=== PATIENT | female | born 1960 | race Caucasian/White ===

== ENCOUNTER 2019-12-16 22:16 | Emergency (ER) | payer MEDICARE, MEDICAID ==
[2019-12-16] MEDS ORDERED: Albuterol/Ipratropium 3.0-0.5 MG/3 ML Neb Soln ONE (22:43)
[2019-12-16] MEDS ORDERED: Albuterol/Ipratropium 3.0-0.5 MG/3 ML Neb Soln NEB ONE ×2 (22:45→23:22)
[2019-12-16] MEDS ORDERED: predniSONE 20 MG Tab PO ONE (23:23)
--- NOTE | 2019-12-16 23:27 | EDM.PDOC ---
ED HPI GENERAL MEDICAL PROBLEM - General Chief Complaint: Respiratory Problem Stated Complaint: BREATHING PROBLEM Time Seen by Provider: 12/16/19 22:26 - History of Present Illness INITIAL COMMENTS - FREE TEXT/NARRATIVE: 59-year-old female presents with wheezing x3 days and significant coughing. Patient reports coughing for about 3 days much worse at night making it difficult for her to lie down where she gets paroxysmal coughing spells. She also thinks she may be doing a little bit of wheezing. She denies any known fevers. Denies any significant shortness of breath or chest pain. No confusion weakness or numbness. No change in bowel or bladder habits. No dysuria. She does endorse orange urine today and wonders if she is dehydrated. Patient denies any recent falls and has her typical chronic bilateral knee pain which is been going on for many years. No recent falls and no confusion. - Related Data Allergies Allergy/AdvReac Type Severity Reaction Status Date / Time hydrocodone Allergy Other Verified 12/16/19 22:37 Home Meds: Home Meds Albuterol Sulfate [Albuterol Sulfate Hfa] 1 inh INH ASDIRECTED PRN 12/16/19 [ History] Celecoxib 1 tab PO DAILY PRN 12/16/19 [History] Dextromethorphan Polistirex [12-Hour Cough Relief] 30 mg PO BID PRN 20 Days #30 theodore.er.12h 12/17/19 [Rx] predniSONE [Prednisone] 50 mg PO DAILY 4 Days tablet 12/17/19 [Rx] Past Medical History HEENT History: Reports: None Cardiovascular History: Reports: None Respiratory History: Reports: Asthma Gastrointestinal History: Reports: None, Hiatal Hernia Genitourinary History: Reports: None 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: Musculoskeletal History: Reports: Osteoarthritis Neurological History: Reports: None Psychiatric History: Reports: None Endocrine/Metabolic History: Reports: None Insulin Pump Model and Commercial Estimator: N/A Hematologic History: Reports: None Immunologic History: Reports: None Oncologic (Cancer) History: Reports: None Dermatologic History: Reports: None - Infectious Disease History Infectious Disease History: Reports: None - Past Surgical History Head Surgeries/Procedures: Reports: None GI Surgical History: Reports: Appendectomy, Cholecystectomy, Hernia, Abdominal Female Surgical History: Reports: Tubal Ligation Social & Family History - Family History Family Medical History: Noncontributory - Tobacco Use Smoking Status *Q: Never Smoker Second Hand Smoke Exposure: No - Caffeine Use Caffeine Use: Reports: Soda - Recreational Drug Use Recreational Drug Use: No Drug Use in Last 12 Months: No ED ROS GENERAL - Review of Systems Review Of Systems: Comprehensive ROS is negative, except as noted in HPI. ED EXAM, GENERAL - Physical Exam Exam: See Below Free Text/Narrative:: General: No acute distress. Comfortable. Heent: Examination revealed no pallor, no icterus, no lymphadenopathy. The patient has normal posterior pharynx, moist mucous membranes. Neck: Supple. No JVD. No rigidity. Heart: Normal rate. Reg rhythm. No murmurs appreciated. Lungs: Bilaterally clear to auscultation. No focal findings. Abdomen: Nontender, non-distended, soft, no CVA tenderness. Neuro: Pt is moving all four extremities. EOMI. PERRL. Normal speech. Skin: Exposed areas appeared normally perfused, warm, normal color with no meaningful rashes or lesions. Extremities: Peripheral examination revealed no pedal edema. Peripheral pulses were 2+. Course - Vital Signs Text/Narrative:: Well-appearing patient with reasonable saturations and no significant tachycardia. Her symptoms suggest bronchitis. Her lungs are clear but there is poor movement at the bases suggesting her long history of asthma. She was given a treatment here and feels much better. 3-day of prednisone. We discussed the risk of using prednisone with anti-inflammatories and she accepts the risk nothing this is certainly worthwhile given her significant coughing and breathing challenges. She will follow-up with her primary care provider return here with any worsening. Last Recorded V/S: Last Vital Signs Temp 35.9 C L 12/16/19 23:37 Pulse 93 12/16/19 23:37 Resp 20 12/16/19 23:37 BP 112/61 12/16/19 23:37 Pulse Ox 99 12/16/19 23:37 - Orders/Labs/Meds Orders: Active Orders 24 hr Category Date Time Status RT Aerosol Therapy [RC] ASDIRECTED Care 12/16/19 22:45 Active RT Aerosol Therapy [RC] ASDIRECTED Care 12/16/19 23:22 Active Labs: Laboratory Tests 12/17/19 Range/Units 23:50 Urine Color YELLOW Urine Appearance CLEAR Urine pH 6.0 (5.0-8.0) Ur Specific [place] 1.010 (1.001-1.035) Urine Protein NEGATIVE (NEGATIVE) mg/dL Urine Glucose (UA) NEGATIVE (NEGATIVE) mg/dL Urine Ketones NEGATIVE (NEGATIVE) mg/dL Urine Occult Blood MODERATE H (NEGATIVE) Urine Nitrite NEGATIVE (NEGATIVE) Urine Bilirubin NEGATIVE (NEGATIVE) Urine Urobilinogen 0.2 (<2.0) EU/dL Ur Leukocyte Esterase MODERATE H (NEGATIVE) Urine RBC 1-2 (0-2/HPF) Urine WBC 2-3 (0-5/HPF) Ur Epithelial Cells OCCASIONAL (NONE-FEW) Urine Bacteria RARE (NEGATIVE) Meds: Medications Discontinued Medications Generic Name Dose Route Start Last Admin Trade Name Joseq PRN Reason Stop Dose Admin Albuterol/Ipratropium 3 ml 12/16/19 22:45 12/16/19 22:46 Duoneb 3.0-0.5 Mg/3 Ml NEB 12/16/19 22:46 3 ml ONETIME ONE Administration Albuterol/Ipratropium Confirm 12/16/19 22:43 12/16/19 22:50 Duoneb 3.0-0.5 Mg/3 Ml Administered 12/16/19 22:44 Not Given Dose 3 ml .ROUTE .STK-MED ONE Albuterol/Ipratropium 3 ml 12/16/19 23:22 12/16/19 23:34 Duoneb 3.0-0.5 Mg/3 Ml NEB 12/16/19 23:23 3 ml ONETIME ONE Administration Prednisone 40 mg 12/16/19 23:23 12/16/19 23:34 Prednisone PO 12/16/19 23:24 40 mg ONETIME ONE Administration - Re-Assessments/Exams Free Text/Narrative Re-Assessment/Exam: 12/17/19 00:44 Patient feels better after treatment. She wants to be discharged home. We discussed the blood in her urine. She of course no longer menstruates. She will need follow-up for this. She has an appointment about 2 weeks from now with her primary care physician and she will ask about rechecking her urine. She understands the importance of follow-up of the symptom. Meanwhile we will send her home with several days of steroids only given her history of wheezing. Otherwise she will return to emergency with any worsening. Departure - Departure Time of Disposition: 00:45 Disposition: Home, Self-Care 01 Condition: Good Clinical Impression: Viral bronchitis - Discharge Information Prescriptions: Dextromethorphan Polistirex [12-Hour Cough Relief] 30 mg PO BID PRN 20 Days #30 theodore.er.12h PRN Reason: Cough predniSONE [Prednisone] 50 mg PO DAILY 4 Days tablet Referrals: Kaitlynn Puente DO [Primary Care Provider] - Forms: ED Department Discharge Additional Instructions: Drink plenty of water with your bronchitis. Take your cough medication as prescribed. You can also take honey mixed with tea are not any of a number of other beverages to help control your cough. Take your prednisone to help with your wheezing. Follow-up with your primary care provider. Discuss your urine test here which had some blood in it. This should be monitored by your primary care physician. Return to emergency with any worsening. The following information is given to patients seen in the emergency department who are being discharged to home. This information is to outline your options for follow-up care. We provide all patients seen in our emergency department with a follow-up referral. The need for follow-up, as well as the timing and circumstances, are variable depending upon the specifics of your emergency department visit. If you don't have a primary care physician on staff, we will provide you with a referral. We always advise you to contact your personal physician following an emergency department visit to inform them of the circumstance of the visit and for follow-up with them and/or the need for any referrals to a consulting specialist. The emergency department will also refer you to a specialist when appropriate. This referral assures that you have the opportunity for follow-up care with a specialist. All of these measure are taken in an effort to provide you with optimal care, which includes your follow-up. Under all circumstances we always encourage you to contact your private physician who remains a resource for coordinating your care. When calling for follow-up care, please make the office aware that this follow-up is from your recent emergency room visit. If for any reason you are refused follow-up, please contact the [facility] Emergency Department at and asked to speak to the emergency department charge nurse. Sepsis Event Note - Evaluation Sepsis Screening Result: No Definite Risk - Focused Exam Vital Signs: Vital Signs Temp Pulse Resp BP Pulse Ox 12/16/19 23:37 35.9 C L 93 20 112/61 99 12/16/19 22:35 36.1 C 90 20 135/62 92 L Date Exam was Performed: 12/17/19 Time Exam was Performed: 00:44 - My Orders Last 24 Hours: My Active Orders 12/16/19 22:45 RT Aerosol Therapy [RC] ASDIRECTED 12/16/19 23:22 RT Aerosol Therapy [RC] ASDIRECTED - Assessment/Plan Last 24 Hours: My Active Orders 12/16/19 22:45 RT Aerosol Therapy [RC] ASDIRECTED 12/16/19 23:22 RT Aerosol Therapy [RC] ASDIRECTED
== END 2019-12-17 01:20 | disposition home or self-care (01) ==
LOC: MW.ED 22:16
DX: J20.8 Acute bronchitis due to other specified organisms (principal); B97.89 Other viral agents as the cause of diseases classified elsewhere; J45.909 Unspecified asthma, uncomplicated; Z88.5 Allergy status to narcotic agent
CPT/HCPCS: 81001; 94640; 99285; A9270; 99283; J7620-GY

== ENCOUNTER 2020-07-23 16:08 | Emergency (ER) | payer MEDICARE, MEDICAID ==
--- NOTE | 2020-07-23 17:03 | EDM.PDOC ---
ED HPI GENERAL MEDICAL PROBLEM - General Chief Complaint: Genitourinary Problem Stated Complaint: POSSIBLE KIDNEY STONE Time Seen by Provider: 07/23/20 16:51 Source of Information: Reports: Patient History Limitations: Reports: No Limitations - History of Present Illness INITIAL COMMENTS - FREE TEXT/NARRATIVE: HISTORY AND PHYSICAL: History of present illness: Patient is a 60-year-old female who presents to the emergency room with complaints of low back pain. Initially she was seen at [facility] and had basic lab work along with a UA. The provider was concerned that she may have a kidney stone and recommended she come to the emergency room for a CT scan. Patient denies any fever, chills, headache, change in vision, syncope or near syncope. Denies any chest pain, shortness of breath or cough. Denies any nausea, vomiting, diarrhea, constipation or dysuria. Denies any vaginal bleeding/discharge/concerns of STDs or . Has not noted any blood in urine or stool. Patient has been eating and drinking appropriately. Review of systems: As per history of present illness and below otherwise all systems reviewed and negative. Past medical history: As per history of present illness and as reviewed below otherwise noncontributory. Surgical history: As per history of present illness and as reviewed below otherwise noncontributory. Social history: See social history for further information Family history: As per history of present illness and as reviewed below otherwise noncontributory. Physical exam: General: Well developed and well nourished. Alert and orientated x 3. Nontoxic in appearance and in no acute distress. Vital signs are stable and have been reviewed by me. Nursing notes were reviewed. HEENT: Atraumatic, normocephalic, pupils equal and reactive bilaterally, negative for conjunctival pallor or scleral icterus, mucous membranes moist, TMs normal bilaterally, throat clear, neck supple, nontender, trachea midline. No drooling or trismus noted. No meningeal signs. No hot potato voice noted. Lungs: Clear to auscultation, breath sounds equal bilaterally, chest nontender. Normal work of breathing, no accessory muscles used. Heart: S1S2, regular rate and rhythm without overt murmur Abdomen: Soft, nondistended, nontender. Negative for masses or hepatosplenomegaly. Negative for costovertebral tenderness. Pelvis: Stable nontender. Skin: Intact, warm, dry. No lesions or rashes noted. Hematologic: No petechiae or purpra. Mucosa appropriate color and normal nail bed color and refill. Extremities: Atraumatic, moves all extremities per self without difficulty or deficits, negative for cords or calf pain. Neurovascular unremarkable. Neuro: Awake, alert, oriented. Cranial nerves II through XII unremarkable. Cerebellum unremarkable. Motor and sensory unremarkable throughout. Exam nonfocal. Psychiatric: Mood and affect are appropriate. Normal thought process. Answering questions appropriately. Notes: Patient did have a CBC, BMP, UA done today, which was normal with the exception of moderate amount of blood noted in the urine. [place] provider encouraged her to come to the emergency room for a CT of her abdomen and pelvis I have spoken with the patient/caregiver and discussed today's findings, in addition to providing specific details for plan of care. Reassessment at the time of disposition demonstrates that the patient is in no acute distress. The patient has remained stable throughout the entire ED visit and is without objective evidence for acute process requiring urgent intervention or hospitalization. The patient is stable for discharge, counseling was provided and we discussed in great detail signs and symptoms that would prompt them to return to the Emergency Department. Medication, follow up and supportive care measures were reviewed and discussed. Voices understanding and is agreeable to plan of care. Denies any further questions or concerns at this time. Diagnostics: CBC, CMP, UA, HCGU, Abd/Pelvis Therapeutics: None Prescription: Macrobid Impression: UTI Plan: 1. Today your second urine shows the early signs of UTI. No kidney stones are identified.. 2. Take the medication as directed. Tylenol and/or ibuprofen as needed for pain management 3. We encourage you to follow up with your primary care provider and/or recommended specialist in the next few days for re-evaluation and further care/management. If your symptoms should worsen, new symptoms develop or any of the signs and symptoms we discussed should arise please return to the emergency room or call 911 (if needed). Definitive disposition and diagnosis as appropriate pending reevaluation and review of above. lower back Pain Score (Numeric/FACES): 7 - Related Data Allergies Allergy/AdvReac Type Severity Reaction Status Date / Time hydrocodone Allergy Other Verified 07/23/20 17:11 Home Meds: Home Meds Albuterol Sulfate [Albuterol Sulfate Hfa] 1 inh INH ASDIRECTED PRN 12/16/19 [History] Celecoxib 1 tab PO DAILY PRN 12/16/19 [History] Nitrofurantoin Monohyd/M-Cryst [Macrobid 100 mg Capsule] 100 mg PO BID 5 Days #10 capsule 07/23/20 [Rx] Past Medical History HEENT History: Reports: None Cardiovascular History: Reports: None Respiratory History: Reports: Asthma Gastrointestinal History: Reports: None, Hiatal Hernia Genitourinary History: Reports: None 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: Musculoskeletal History: Reports: Osteoarthritis Neurological History: Reports: None Psychiatric History: Reports: None Endocrine/Metabolic History: Reports: None Insulin Pump Model and Auto Wrecker: N/A Hematologic History: Reports: None Immunologic History: Reports: None Oncologic (Cancer) History: Reports: None Dermatologic History: Reports: None - Infectious Disease History Infectious Disease History: Reports: None - Past Surgical History Head Surgeries/Procedures: Reports: None GI Surgical History: Reports: Appendectomy, Cholecystectomy, Hernia, Abdominal Female Surgical History: Reports: Tubal Ligation Social & Family History - Family History Family Medical History: Noncontributory - Caffeine Use Caffeine Use: Reports: Soda ED ROS GENERAL - Review of Systems Review Of Systems: Comprehensive ROS is negative, except as noted in HPI. ED EXAM, RENAL/ - Physical Exam Exam: See Below (See dictation) Course - Vital Signs Last Recorded V/S: Last Vital Signs Temp 97.4 F 07/23/20 17:07 Pulse 63 07/23/20 17:07 Resp 16 07/23/20 17:07 BP 138/61 07/23/20 17:07 Pulse Ox 97 07/23/20 17:07 - Orders/Labs/Meds Orders: Active Orders 24 hr Category Date Time Status CULTURE URINE [RM] Stat Lab 07/23/20 17:42 Received Labs: Laboratory Tests 07/23/20 07/23/20 Range/Units 17:42 17:42 Urine Color YELLOW Urine Appearance CLEAR Urine pH 6.0 (5.0-8.0) Ur Specific [place] 1.015 (1.001-1.035) Urine Protein NEGATIVE (NEGATIVE) mg/dL Urine Glucose (UA) NEGATIVE (NEGATIVE) mg/dL Urine Ketones NEGATIVE (NEGATIVE) mg/dL Urine Occult Blood SMALL H (NEGATIVE) Urine Nitrite NEGATIVE (NEGATIVE) Urine Bilirubin NEGATIVE (NEGATIVE) Urine Urobilinogen 0.2 (<2.0) EU/dL Ur Leukocyte Esterase SMALL H (NEGATIVE) Urine RBC 0-2 (0-2/HPF) Urine WBC 1-3 (0-5/HPF) Ur Epithelial Cells FEW (NONE-FEW) Urine Bacteria 1+ H (NEGATIVE) Urine HCG, Qual NEGATIVE (NEGATIVE) Departure - Departure Time of Disposition: 19:29 Disposition: Home, Self-Care 01 Clinical Impression: UTI, Urinary tract infectious disease - Discharge Information Prescriptions: Nitrofurantoin Monohyd/M-Cryst [Macrobid 100 mg Capsule] 100 mg PO BID 5 Days #10 capsule Instructions: Urinary Tract Infection, Adult, [id number] Referrals: Kaitlynn Puente DO [Primary Care Provider] - Forms: ED Department Discharge Additional Instructions: The following information is given to patients seen in the emergency department who are being discharged to home. This information is to outline your options for follow-up care. We provide all patients seen in our emergency department with a follow-up referral. The need for follow-up, as well as the timing and circumstances, are variable depending upon the specifics of your emergency department visit. If you don't have a primary care physician on staff, we will provide you with a referral. We always advise you to contact your personal physician following an emergency department visit to inform them of the circumstance of the visit and for follow-up with them and/or the need for any referrals to a consulting specialist. The emergency department will also refer you to a specialist when appropriate. This referral assures that you have the opportunity for follow-up care with a specialist. All of these measure are taken in an effort to provide you with optimal care, which includes your follow-up. Under all circumstances we always encourage you to contact your private physic cici who remains a resource for coordinating your care. When calling for follow- up care, please make the office aware that this follow-up is from your recent emergency room visit. If for any reason you are refused follow-up, please contact the [facility] Emergency Department at and asked to speak to the emergency department charge nurse. [facility] Primary [facility] [address] [place] [id number] [facility] [address] [place] [address] Thank you for choosing the [facility] emergency department in [place] for your medical needs today. It was a pleasure caring for you. Today you were seen in the emergency department for low back pain. 1. Today your second urine shows the early signs of UTI. No kidney stones are identified. 2. Take the medication as directed. Tylenol and/or ibuprofen as needed for pain management 3. We encourage you to follow up with your primary care provider and/or recommended specialist in the next few days for re-evaluation and further care/management. If your symptoms should worsen, new symptoms develop or any of the signs and symptoms we discussed should arise please return to the emergency room or call 911 (if needed). Sepsis Event Note (ED) - Focused Exam Vital Signs: Vital Signs Temp Pulse Resp BP Pulse Ox 07/23/20 17:07 97.4 F 63 16 138/61 97 - My Orders Last 24 Hours: My Active Orders 07/23/20 17:42 CULTURE URINE [RM] Stat - Assessment/Plan Last 24 Hours: My Active Orders 07/23/20 17:42 CULTURE URINE [RM] Stat
--- NOTE | 2020-07-23 19:26 | CT ---
INDICATION: Flank pain, and hematuria. COMPARISON: CT of the abdomen and pelvis dated 11/25/2018 TECHNIQUE: Routine axial CT images of the abdomen and pelvis were obtained without the use of intravenous or oral contrast per routine renal stone protocol. FINDINGS: No hydronephrosis. Multiple pelvic phleboliths and phleboliths along the left gonadal veins. No ureterectasis. No stones within the urinary bladder which is decompressed. Uterine fibroids. No suspicious adnexal mass. The appendix is not confidently identified, however no suspicious inflammatory process in the right lower quadrant. Moderate colonic stool burden. Colonic diverticulosis. Cholecystectomy change. Large calcified granuloma in the left lung base, and other small noncalcified pulmonary nodules are stable. The spleen measures 12.9 cm. Mild hepatomegaly. No pancreatitis. Adrenal glands appear unremarkable. Atherosclerotic changes within the abdominal aorta without abdominal aortic aneurysm. Large amount of debris, presumably food debris within the stomach. Degenerative changes in the spine. Minimal anterolisthesis of L4 on L5, unchanged. IMPRESSION: No definite renal or ureteral calculi. No hydronephrosis. Please note that all CT scans at this facility use dose modulation, iterative reconstruction, and/or weight-based dosing when appropriate to reduce radiation dose to as low as reasonably achievable. Dictated by Caleb Gonsales MD @ Jul 23 2020 6:48PM (Electronically Signed)
[2020-07-23] MEDS ORDERED: Nitrofurantoin Monohydrate/Macrocrystalline 100 MG Cap PO ONE (19:45)
== END 2020-07-23 19:51 | disposition home or self-care (01) ==
LOC: MW.ED 16:08
DX: N39.0 Urinary tract infection, site not specified (principal); J45.909 Unspecified asthma, uncomplicated; Z88.5 Allergy status to narcotic agent; Z90.49 Acquired absence of other specified parts of digestive tract; Z98.51 Tubal ligation status
CPT/HCPCS: 74176; 81001; 81025; 87086; 99284; A9270; 99283

== ENCOUNTER 2022-01-30 10:13 | Emergency (ER) | payer MEDICARE, MEDICAID ==
[2022-01-30] MEDS ORDERED: methylPREDNISolone Sodium Succinate 125 MG/2 ML SDV IM ONE (10:35)
[2022-01-30] MEDS ORDERED: traMADol 50 MG Tab PO ONE (10:35)
== END 2022-01-30 13:09 | disposition home or self-care (01) ==
LOC: MW.ED 10:13
DX: S32.039A Unspecified fracture of third lumbar vertebra, initial encounter for closed fracture (principal); M17.12 Unilateral primary osteoarthritis, left knee; Z90.49 Acquired absence of other specified parts of digestive tract; Z79.899 Other long term (current) drug therapy; Z88.5 Allergy status to narcotic agent; X58.XXXA Exposure to other specified factors, initial encounter
CPT/HCPCS: 72131; 73560; 81001; 87086; 96372; 99284; A9270; J2930; 99283

== ENCOUNTER 2022-03-04 13:40 | Emergency (ER) | payer MEDICARE, MEDICAID ==
[2022-03-04] MEDS ORDERED: methylPREDNISolone Sodium Succinate 125 MG/2 ML SDV IM ONE (14:01)
[2022-03-04] MEDS ORDERED: HYDROmorphone 1 MG/ML Syringe IM ONE (14:01)
== END 2022-03-04 16:43 | disposition home or self-care (01) ==
LOC: MW.ED 13:40
DX: S32.020A Wedge compression fracture of second lumbar vertebra, initial encounter for closed fracture (principal); S32.030A Wedge compression fracture of third lumbar vertebra, initial encounter for closed fracture; I10 Essential (primary) hypertension; Z90.49 Acquired absence of other specified parts of digestive tract; Z79.899 Other long term (current) drug therapy; Z88.5 Allergy status to narcotic agent; X58.XXXA Exposure to other specified factors, initial encounter
CPT/HCPCS: 72131; 96372; 99283; J1170; J2930

== ENCOUNTER 2022-08-18 06:58 | Day surgery (SDC) | payer MEDICARE, MEDICAID ==
[~2022-08-18 06:58] MED LIST: Lactated Ringers 1,000 ML IV SCH
[2022-08-18] MEDS ORDERED: Lactated Ringers 1,000 ML IV SCH (09:45)
== END 2022-08-18 09:55 | disposition home or self-care (01) ==
LOC: MW.SDS 06:58
PROVIDERS: ATTEND Surgery
DX: K57.30 Diverticulosis of large intestine without perforation or abscess without bleeding (principal); M19.90 Unspecified osteoarthritis, unspecified site; Z86.010 Personal history of colon polyps; Z80.0 Family history of malignant neoplasm of digestive organs; Z79.82 Long term (current) use of aspirin; Z90.49 Acquired absence of other specified parts of digestive tract; Z98.890 Other specified postprocedural states; Z88.6 Allergy status to analgesic agent; Z79.899 Other long term (current) drug therapy
CPT/HCPCS: J7120

== ENCOUNTER 2022-12-17 07:07 | Emergency (ER) | payer MEDICARE, MEDICAID ==
[2022-12-17] MEDS ORDERED: Ketorolac 30 MG/ML SDV IM ONE (07:32)
[2022-12-17] MEDS ORDERED: Cyclobenzaprine 10 MG Tab PO ONE (07:32)
== END 2022-12-17 07:46 | disposition home or self-care (01) ==
LOC: MW.ED 07:07
DX: M54.50 Low back pain, unspecified (principal); J45.909 Unspecified asthma, uncomplicated; E66.9 Obesity, unspecified; Z88.5 Allergy status to narcotic agent; Z68.41 Body mass index [BMI] 40.0-44.9, adult
CPT/HCPCS: 96372; 99283; A9270; J1885

== ENCOUNTER 2023-02-24 19:35 | Inpatient (IN) | payer MEDICARE, MEDICAID ==
[2023-02-24] MEDS ORDERED: Ibuprofen 600 MG Tab PO ONE (19:59)
[2023-02-24] MEDS ORDERED: HYDROmorphone 1 MG/ML Syringe IM ONE (20:00)
[2023-02-24] MEDS ORDERED: HYDROmorphone 1 MG/ML Syringe IV ONE (20:08)
[2023-02-24] MEDS ORDERED: Morphine 15 MG Tab PO PRN (22:53)
[2023-02-25] MEDS ORDERED: Morphine 2 MG/ML SYRINGE IVPUSH PRN (01:06)
[2023-02-25] MEDS ORDERED: Ondansetron 4 MG/2 ML SDV IVPUSH PRN (01:07)
[2023-02-25] MEDS ORDERED: LORazepam 2 MG/ML SDV IVPUSH PRN (01:12)
[2023-02-25] MEDS: oxyCODONE 5 MG Tab PO PRN ×5 (02:47→20:38)
[2023-02-25] MEDS ORDERED: Albuterol 8 GM Inhaler INH PRN (10:19)
[2023-02-25 13:51] LABS: HEMATOCRIT 38.2 % (36.0-46.0); HEMOGLOBIN 12.5 g/dL (12.0-16.0); MEAN CORPUSCULAR HEMOGLOBIN 29.6 pg (27.0-32.0); MEAN CORPUSCULAR HGB CONC 32.7 g/dL (31.0-37.0); MEAN CORPUSCULAR VOLUME 90.3 fL (80.0-98.0); MEAN PLATELET VOLUME 9.3 fL (7.40-12.00); RED BLOOD CELL COUNT 4.23 M/uL (4.30-5.90); WHITE BLOOD CELL COUNT,WBC 8.83 K/uL (4.0-11.0)
[2023-02-25 14:21] LABS: A/G RATIO 1.2 (0.9-1.6); ALBUMIN 3.3 g/dL (3.4-5.0); BILIRUBIN TOTAL 0.7 mg/dL (0.2-1.0); CREATININE 0.9 mg/dL (0.6-1.0); EST CRCL DRUG DOSING (CG) 57.4 mL/min; MAGNESIUM 1.9 mg/dL (1.8-2.4); POTASSIUM,K 4.1 mmol/L (3.5-5.1); TSH ULTRASENSITIVE 2.11 uIU/mL (0.36-3.74)
[2023-02-25] MEDS: Meloxicam 7.5 MG Tab PO SCH (15:44)
[2023-02-25] MEDS: Enoxaparin 30 MG/0.3 ML Syringe SUBCUT SCH ×2 (15:44→20:38)
[2023-02-26] MEDS: oxyCODONE 5 MG Tab PO PRN ×4 (00:32→12:58)
[2023-02-26] MEDS: Acetaminophen 325 MG Tab PO PRN ×3 (04:33→12:58)
[2023-02-26 08:33] LABS: BASOPHILS PERCENT AUTO 0.6 % (0.0-1.5); EOSINOPHILS ABSOLUTE AUTO 0.3 K/uL (0.0-0.7); EOSINOPHILS PERCENT AUTO 3.9 % (0.0-7.0); HEMATOCRIT 35.9 % (36.0-46.0); HEMOGLOBIN 11.6 g/dL (12.0-16.0); LYMPHOCYTES ABSOLUTE AUTO 1.4 K/uL (0.6-2.4); MEAN CORPUSCULAR HEMOGLOBIN 29.4 pg (27.0-32.0); MEAN CORPUSCULAR HGB CONC 32.3 g/dL (31.0-37.0); MEAN CORPUSCULAR VOLUME 90.9 fL (80.0-98.0); MONOCYTES ABSOLUTE AUTO 0.6 K/uL (0.0-0.8); NEUTROPHILS ABSOLUTE AUTO 4.4 K/uL (1.4-5.7); NEUTROPHILS PERCENT AUTO 65.5 % (48.0-80.0); NRBC ABSOLUTE 0 K/uL; PLATELET COUNT,PLT 155 K/uL (150-400); RED BLOOD CELL COUNT 3.95 M/uL (4.30-5.90); WHITE BLOOD CELL COUNT,WBC 6.75 K/uL (4.0-11.0)
[2023-02-26 08:53] LABS: CALCIUM 8.7 mg/dL (8.5-10.1); CARBON DIOXIDE,CO2 29.2 mmol/L (21.0-32.0); CREATININE 0.9 mg/dL (0.6-1.0); EST CRCL DRUG DOSING (CG) 57.4 mL/min
[2023-02-26] MEDS: Meloxicam 7.5 MG Tab PO SCH (09:08)
[2023-02-26] MEDS: Enoxaparin 30 MG/0.3 ML Syringe SUBCUT SCH (09:13)
== END 2023-02-26 13:15 | disposition home or self-care (01) | DRG 563 ==
LOC: MW.ED 19:35 → MW.MS 02-25 00:37
PROVIDERS: ADMIT Internal Medicine; ATTEND Internal Medicine
DX: S82.431A Displaced oblique fracture of shaft of right fibula, initial encounter for closed fracture (principal); S82.61XA Displaced fracture of lateral malleolus of right fibula, initial encounter for closed fracture; F32.A Depression, unspecified; F10.129 Alcohol abuse with intoxication, unspecified; J45.909 Unspecified asthma, uncomplicated; G89.29 Other chronic pain; E66.9 Obesity, unspecified; M54.9 Dorsalgia, unspecified; M16.0 Bilateral primary osteoarthritis of hip; M17.10 Unilateral primary osteoarthritis, unspecified knee; M25.571 Pain in right ankle and joints of right foot; W18.30XA Fall on same level, unspecified, initial encounter; Z88.5 Allergy status to narcotic agent; Z79.51 Long term (current) use of inhaled steroids; Z98.890 Other specified postprocedural states; Z86.010 Personal history of colon polyps; Y92.89 Other specified places as the place of occurrence of the external cause; Z90.49 Acquired absence of other specified parts of digestive tract; W07.XXXA Fall from chair, initial encounter; Z98.51 Tubal ligation status
CPT/HCPCS: 72192; 73523; 73562; 73610; 96374; 99285; A9270 ×2; J1170; 36415; 80048; 80053; 83735; 84443; 85025; 85027; 97163-GP; J1650

== ENCOUNTER 2023-10-21 20:49 | Emergency (ER) | payer MEDICARE, MEDICAID ==
[2023-10-21 21:11] LABS: BASOPHILS ABSOLUTE AUTO 0.03 K/uL (0.00-0.20); BASOPHILS PERCENT AUTO 0.4 % (0.0-1.0); EOSINOPHILS ABSOLUTE AUTO 0.08 K/uL (0.00-0.45); EOSINOPHILS PERCENT AUTO 1.2 % (0.0-6.0); HEMATOCRIT 42.6 % (37.0-47.0); HEMOGLOBIN 13.9 g/dL (12.0-16.0); IMMATURE GRAN ABSOLUTE AUTO 0.04 K/uL (0.00-0.05); IMMATURE GRAN PERCENT AUTO 0.6 % (0.0-0.4); LYMPHOCYTES ABSOLUTE AUTO 2.22 K/uL (1.00-4.80); MEAN CORPUSCULAR HEMOGLOBIN 29.7 pg (28.0-32.0); MEAN CORPUSCULAR HGB CONC 32.6 g/dL (32.0-36.0); MEAN PLATELET VOLUME 9.4 fL (9.4-12.3); MONOCYTES ABSOLUTE AUTO 0.45 K/uL (0.00-0.80); MONOCYTES PERCENT AUTO 6.5 % (0.0-8.0); NEUTROPHILS ABSOLUTE AUTO 4.12 K/uL (1.80-7.70); NEUTROPHILS PERCENT AUTO 59.3 % (41.0-71.0); PLATELET COUNT,PLT 241 K/uL (150-400); RED BLOOD CELL COUNT 4.68 M/uL (4.10-5.30); WHITE BLOOD CELL COUNT,WBC 6.94 K/uL (3.9-11.3)
[2023-10-21] MEDS ORDERED: Iopamidol 755 MG/ML 500 ML Multipack Bottle IVPUSH ONE (21:24)
[2023-10-21 21:35] LABS: A/G RATIO 1.3 (0.9-1.6); ALBUMIN 3.8 g/dL (3.4-5.0); BILIRUBIN TOTAL 0.4 mg/dL (0.2-1.0); CALCIUM 9.3 mg/dL (8.5-10.1); CARBON DIOXIDE,CO2 29.9 mmol/L (21.0-32.0); CREATININE 0.8 mg/dL (0.6-1.0); EST CRCL DRUG DOSING (CG) 61.09 mL/min; PROTEIN TOTAL,TP 6.7 g/dL (6.4-8.2)
== END 2023-10-22 00:57 ==
LOC: MW.ED 20:49
DX: I63.9 Cerebral infarction, unspecified (principal); E66.9 Obesity, unspecified; Z88.5 Allergy status to narcotic agent
CPT/HCPCS: 36415; 70450; 70496; 70498; 80053; 82947; 84484; 85025; 93005; 99285; Q9967; 93010

== ENCOUNTER 2023-10-26 14:19 | Emergency (ER) | payer MEDICARE, MEDICAID ==
[2023-10-26 16:10] LABS: BASOPHILS ABSOLUTE AUTO 0.05 K/uL (0.00-0.20); BASOPHILS PERCENT AUTO 0.7 % (0.0-1.0); EOSINOPHILS ABSOLUTE AUTO 0.07 K/uL (0.00-0.45); HEMATOCRIT 38.8 % (37.0-47.0); HEMOGLOBIN 12.8 g/dL (12.0-16.0); IMMATURE GRAN ABSOLUTE AUTO 0.02 K/uL (0.00-0.05); IMMATURE GRAN PERCENT AUTO 0.3 % (0.0-0.4); LYMPHOCYTES ABSOLUTE AUTO 1.73 K/uL (1.00-4.80); LYMPHOCYTES PERCENT AUTO 23.7 % (24.0-44.0); MEAN CORPUSCULAR HEMOGLOBIN 30.3 pg (28.0-32.0); MEAN CORPUSCULAR VOLUME 91.9 fL (83.0-99.0); MEAN PLATELET VOLUME 9.6 fL (9.4-12.3); MONOCYTES ABSOLUTE AUTO 0.45 K/uL (0.00-0.80); MONOCYTES PERCENT AUTO 6.2 % (0.0-8.0); NEUTROPHILS ABSOLUTE AUTO 4.97 K/uL (1.80-7.70); NEUTROPHILS PERCENT AUTO 68.1 % (41.0-71.0); PLATELET COUNT,PLT 230 K/uL (150-400); RED BLOOD CELL COUNT 4.22 M/uL (4.10-5.30); WHITE BLOOD CELL COUNT,WBC 7.29 K/uL (3.9-11.3)
[2023-10-26 16:29] LABS: A/G RATIO 1.3 (0.9-1.6); ALBUMIN 3.4 g/dL (3.4-5.0); BILIRUBIN TOTAL 0.3 mg/dL (0.2-1.0); CALCIUM 8.9 mg/dL (8.5-10.1); CARBON DIOXIDE,CO2 30.8 mmol/L (21.0-32.0); EST CRCL DRUG DOSING (CG) 51.02 mL/min; POTASSIUM,K 4.1 mmol/L (3.5-5.1)
== END 2023-10-26 16:35 | disposition home or self-care (01) ==
LOC: MW.ED 14:19
DX: R20.2 Paresthesia of skin (principal); J45.909 Unspecified asthma, uncomplicated; M19.90 Unspecified osteoarthritis, unspecified site; E66.9 Obesity, unspecified; Z68.41 Body mass index [BMI] 40.0-44.9, adult; Z79.82 Long term (current) use of aspirin; Z79.01 Long term (current) use of anticoagulants; Z79.899 Other long term (current) drug therapy; Z88.5 Allergy status to narcotic agent
CPT/HCPCS: 36415; 80053; 85025; 99283; 99284

== ENCOUNTER 2024-01-25 04:25 | Emergency (ER) | payer MEDICARE, MEDICAID ==
[2024-01-25] MEDS: Lidocaine 1% PF 2 ML SDV ONE (04:42)
== END 2024-01-25 05:17 | disposition home or self-care (01) ==
LOC: MW.ED 04:25
DX: H69.91 Unspecified Eustachian tube disorder, right ear (principal); J00 Acute nasopharyngitis [common cold]; E66.9 Obesity, unspecified; Z79.82 Long term (current) use of aspirin; Z79.02 Long term (current) use of antithrombotics/antiplatelets; Z79.899 Other long term (current) drug therapy; Z88.5 Allergy status to narcotic agent; Z90.49 Acquired absence of other specified parts of digestive tract; Z68.41 Body mass index [BMI] 40.0-44.9, adult
CPT/HCPCS: 99283; U0002; J3490

== ENCOUNTER 2024-06-17 07:14 | Emergency (ER) | payer MEDICARE, MEDICAID ==
[2024-06-17] MEDS: Ibuprofen 600 MG Tab PO ONE (07:58)
== END 2024-06-17 08:13 ==
LOC: MW.ED 07:14
DX: M25.572 Pain in left ankle and joints of left foot (principal); M70.862 Other soft tissue disorders related to use, overuse and pressure, left lower leg; J45.909 Unspecified asthma, uncomplicated; E66.9 Obesity, unspecified; Z90.49 Acquired absence of other specified parts of digestive tract; Z79.82 Long term (current) use of aspirin; Z79.899 Other long term (current) drug therapy; Z88.5 Allergy status to narcotic agent; Z75.8 Other problems related to medical facilities and other health care
CPT/HCPCS: 73610; 99283; A9270

== ENCOUNTER 2024-07-05 08:29 | Emergency (ER) | payer MEDICARE, MEDICAID | END 2024-07-05 11:03 | disposition home or self-care (01) | LOC: MW.ED 08:29 | DX: S90.122A Contusion of left lesser toe(s) without damage to nail, initial encounter (principal); E66.9 Obesity, unspecified; Z68.41 Body mass index [BMI] 40.0-44.9, adult; Z90.49 Acquired absence of other specified parts of digestive tract; Z79.82 Long term (current) use of aspirin; Z79.899 Other long term (current) drug therapy; Z88.5 Allergy status to narcotic agent; X50.1XXA Overexertion from prolonged static or awkward postures, initial encounter | CPT/HCPCS: 73630-26-LT; 73630-LT; 99283 ==

== ENCOUNTER 2024-07-07 04:09 | Emergency (ER) | payer MEDICARE, MEDICAID ==
[2024-07-07] MEDS: Acetaminophen 500 MG Tab PO ONE (04:42)
[2024-07-07] MEDS: Lidocaine 4% 1 each Patch TOP SCH (04:42)
[2024-07-07] MEDS: Ibuprofen 600 MG Tab PO ONE (04:43)
[2024-07-07] MEDS: Lidocaine 4% 1 each Patch TOP ONE (04:47)
== END 2024-07-07 04:55 | disposition home or self-care (01) ==
LOC: MW.ED 04:09
DX: S39.012A Strain of muscle, fascia and tendon of lower back, initial encounter (principal); E66.9 Obesity, unspecified; Z88.8 Allergy status to other drugs, medicaments and biological substances; Z79.899 Other long term (current) drug therapy; Z68.36 Body mass index [BMI] 36.0-36.9, adult; X58.XXXA Exposure to other specified factors, initial encounter
CPT/HCPCS: 99283; A9270

== ENCOUNTER 2024-07-10 00:32 | Emergency (ER) | payer MEDICARE, MEDICAID ==
[2024-07-10 00:56] LABS: APPEARANCE,URINE CLEAR; BILIRUBIN,URINE NEGATIVE (NEGATIVE); COLOR,URINE YELLOW; GLUCOSE,URINE NEGATIVE (NEGATIVE); KETONES,URINE NEGATIVE (NEGATIVE); LEUKOCYTE ESTERASE,URINE TRACE (NEGATIVE); NITRITE,URINE NEGATIVE (NEGATIVE); OCCULT BLOOD,URINE TRACE-INTACT (NEGATIVE); PH,URINE 5.5 (5.0-8.0); PROTEIN,URINE NEGATIVE (NEGATIVE); UROBILINOGEN,URINE 0.2 EU/dL (<2.0)
[2024-07-10 01:03] LABS: BASOPHILS ABSOLUTE AUTO 0.07 K/uL (0.00-0.20); BASOPHILS PERCENT AUTO 0.8 % (0.0-1.0); EOSINOPHILS ABSOLUTE AUTO 0.19 K/uL (0.00-0.45); EOSINOPHILS PERCENT AUTO 2.3 % (0.0-6.0); HEMATOCRIT 39.6 % (37.0-47.0); HEMOGLOBIN 12.8 g/dL (12.0-16.0); IMMATURE GRAN ABSOLUTE AUTO 0.03 K/uL (0.00-0.05); IMMATURE GRAN PERCENT AUTO 0.4 % (0.0-0.4); LYMPHOCYTES PERCENT AUTO 20.5 % (24.0-44.0); MEAN CORPUSCULAR HEMOGLOBIN 27.4 pg (28.0-32.0); MEAN CORPUSCULAR HGB CONC 32.3 g/dL (32.0-36.0); MEAN CORPUSCULAR VOLUME 84.6 fL (83.0-99.0); MEAN PLATELET VOLUME 9.6 fL (9.4-12.3); MONOCYTES ABSOLUTE AUTO 0.65 K/uL (0.00-0.80); MONOCYTES PERCENT AUTO 7.8 % (0.0-8.0); NEUTROPHILS ABSOLUTE AUTO 5.67 K/uL (1.80-7.70); NEUTROPHILS PERCENT AUTO 68.2 % (41.0-71.0); PLATELET COUNT,PLT 282 K/uL (150-400); RED BLOOD CELL COUNT 4.68 M/uL (4.10-5.30); WHITE BLOOD CELL COUNT,WBC 8.31 K/uL (3.9-11.3)
[2024-07-10 01:03] LABS: BACTERIA,URINE FEW (NEGATIVE); EPITHELIAL CELLS,URINE FEW (NONE-FEW); RBC,URINE 0-2 (0-2/HPF)
[2024-07-10 01:26] LABS: A/G RATIO 1.3 (0.9-1.6); ALBUMIN 3.8 g/dL (3.4-5.0); BILIRUBIN TOTAL 0.5 mg/dL (0.2-1.0); CALCIUM 10.1 mg/dL (8.5-10.1); CARBON DIOXIDE,CO2 29.2 mmol/L (21.0-32.0); CREATININE 0.9 mg/dL (0.6-1.0); EST CRCL DRUG DOSING (CG) 55.97 mL/min; POTASSIUM,K 4.1 mmol/L (3.5-5.1); PROTEIN TOTAL,TP 6.7 g/dL (6.4-8.2)
[2024-07-10] MEDS: Acetaminophen 325 MG Tab PO ONE (01:36)
[2024-07-10] MEDS: Ketorolac 30 MG/ML SDV IM ONE (01:36)
[2024-07-10] MEDS: Lidocaine 4% 1 each Patch TOP ONE (01:37)
== END 2024-07-10 02:42 | disposition home or self-care (01) ==
LOC: MW.ED 00:32
DX: M54.50 Low back pain, unspecified (principal); E78.00 Pure hypercholesterolemia, unspecified; E66.9 Obesity, unspecified; Z90.49 Acquired absence of other specified parts of digestive tract; Z79.82 Long term (current) use of aspirin; Z79.899 Other long term (current) drug therapy; Z75.8 Other problems related to medical facilities and other health care; Z88.5 Allergy status to narcotic agent; Z68.41 Body mass index [BMI] 40.0-44.9, adult
CPT/HCPCS: 36415; 80053; 81001; 85025; 96372; 99283; A9270; J1885

== ENCOUNTER 2024-07-12 17:53 | Emergency (ER) | payer MEDICARE, MEDICAID | END 2024-07-12 20:19 | disposition left against medical advice (07) | LOC: MW.ED 17:53 | DX: Z53.21 Procedure and treatment not carried out due to patient leaving prior to being seen by health care provider (principal) ==

== ENCOUNTER 2024-07-13 02:35 | Emergency (ER) | payer MEDICARE, MEDICAID | END 2024-07-13 03:17 | disposition home or self-care (01) | LOC: MW.ED 02:35 | DX: M54.50 Low back pain, unspecified (principal); E66.9 Obesity, unspecified; Z68.41 Body mass index [BMI] 40.0-44.9, adult; E78.00 Pure hypercholesterolemia, unspecified; Z90.49 Acquired absence of other specified parts of digestive tract; Z79.899 Other long term (current) drug therapy; Z79.82 Long term (current) use of aspirin; Z88.5 Allergy status to narcotic agent | CPT/HCPCS: 99283 ==

== ENCOUNTER 2024-09-08 16:20 | Emergency (ER) | payer MEDICARE, MEDICAID ==
[2024-09-08] MEDS: Cyclobenzaprine 10 MG Tab PO ONE (17:04)
== END 2024-09-08 19:28 | disposition home or self-care (01) ==
LOC: MW.ED 16:20
DX: S13.4XXA Sprain of ligaments of cervical spine, initial encounter (principal); J45.909 Unspecified asthma, uncomplicated; M19.90 Unspecified osteoarthritis, unspecified site; E66.9 Obesity, unspecified; Z88.8 Allergy status to other drugs, medicaments and biological substances; Z75.8 Other problems related to medical facilities and other health care; Z79.899 Other long term (current) drug therapy; Z79.82 Long term (current) use of aspirin; Z90.49 Acquired absence of other specified parts of digestive tract; Z68.42 Body mass index [BMI] 45.0-49.9, adult; W22.8XXA Striking against or struck by other objects, initial encounter
CPT/HCPCS: 70450; 70450-26; 72125; 72125-26; 99283; A9270-GY

== ENCOUNTER 2025-04-20 06:49 | Emergency (ER) | payer MEDICARE, MEDICAID ==
[2025-04-20] MEDS ORDERED: Sodium Chloride 0.9% 2.5 ML Syringe FLUSH PRN (07:30)
[2025-04-20] MEDS ORDERED: Sodium Chloride 0.9% 10 ML Syringe FLUSH PRN (07:30)
[2025-04-20 07:42] LABS: BASOPHILS ABSOLUTE AUTO 0.03 K/uL (0.00-0.20); BASOPHILS PERCENT AUTO 0.4 % (0.0-1.0); EOSINOPHILS ABSOLUTE AUTO 0.02 K/uL (0.00-0.45); EOSINOPHILS PERCENT AUTO 0.2 % (0.0-6.0); IMMATURE GRAN ABSOLUTE AUTO 0.06 K/uL (0.00-0.05); IMMATURE GRAN PERCENT AUTO 0.7 % (0.0-0.4); LYMPHOCYTES ABSOLUTE AUTO 1.35 K/uL (1.00-4.80); LYMPHOCYTES PERCENT AUTO 16.0 % (24.0-44.0); MEAN PLATELET VOLUME 9.8 fL (9.4-12.3); MONOCYTES ABSOLUTE AUTO 0.67 K/uL (0.00-0.80); MONOCYTES PERCENT AUTO 7.9 % (0.0-8.0); NEUTROPHILS ABSOLUTE AUTO 6.30 K/uL (1.80-7.70); NEUTROPHILS PERCENT AUTO 74.8 % (41.0-71.0); NRBC ABSOLUTE 0.00 K/uL (0.00-0.02); NRBC PERCENT 0.0 /100WBC (0.0-0.2); PLATELET COUNT,PLT 265 K/uL (150-400); RED BLOOD CELL COUNT 4.48 M/uL (4.10-5.30); WHITE BLOOD CELL COUNT,WBC 8.43 K/uL (3.9-11.3)
[2025-04-20 07:59] LABS: A/G RATIO 1.6 (0.9-1.6); ALANINE AMINOTRANSFERASE,ALT 19.0 IU/L (14-63); ASPARTATE AMNIOTRANSFERASE,AST 12.0 IU/L (15-37); BILIRUBIN TOTAL 0.8 mg/dL (0.2-1.0); BLOOD UREA NITROGEN,BUN 18.0 mg/dL (7.0-18.0); CARBON DIOXIDE,CO2 27.6 mmol/L (21.0-32.0); CHLORIDE,CL 103.0 mmol/L (98-107); CREATININE 1.0 mg/dL (0.6-1.0); EST CRCL DRUG DOSING (CG) 50.37 mL/min; GLUCOSE RANDOM 113.0 mg/dL (74-106); POTASSIUM,K 4.2 mmol/L (3.5-5.1); PROTEIN TOTAL,TP 6.2 g/dL (6.4-8.2); SODIUM,NA 141.0 mmol/L (136-145)
[2025-04-20 08:01] LABS: INR 1.02 (0.86-1.11); PTT,PARTIAL THROMBOPLSTIN TIME 23.7 SEC (23.9-30.7)
[2025-04-20 08:05] LABS: ESTIMATED GFR 64.0 mL/min (>60)
== END 2025-04-20 08:29 | disposition left against medical advice (07) ==
LOC: MW.ED 06:49
DX: R07.9 Chest pain, unspecified (principal); I10 Essential (primary) hypertension; E66.9 Obesity, unspecified; M19.90 Unspecified osteoarthritis, unspecified site; Z88.5 Allergy status to narcotic agent; Z79.82 Long term (current) use of aspirin; Z90.49 Acquired absence of other specified parts of digestive tract; Z68.41 Body mass index [BMI] 40.0-44.9, adult
CPT/HCPCS: 36415; 71046; 71046-26; 80053; 83690; 83735; 84484; 85025; 85610; 85730; 93005; 93010; 99283; 99285